=== PATIENT | male | born 1960 | race Two or more races ===

== ENCOUNTER 2016-12-15 21:33 | Emergency (ER) | payer MEDICAID, OTHER ==
[~2016-12-15] VITALS: Ht 170.2 cm; Wt 90.7 kg
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
--- NOTE | 2016-12-16 | NUR ---
PLACED IN C-COLLAR PER
--- NOTE | 2016-12-16 00:18 | NUR ---
PT TRANSPORTED TO CT IN STABLE CONDITION
[2016-12-16 00:24] LABS: BASOPHILS % (AUTO) 0.3 % (0.0-2.0); EOSINOPHILS # (AUTO) 0.4 /CMM (0.0-0.7); HEMATOCRIT 46 % (39-51); HEMOGLOBIN 15.7 g/dL (13.5-17.5); LYMPHOCYTES # (AUTO) 0.9 /CMM (0.8-4.8); LYMPHOCYTES % (AUTO) 14.8 % (20.0-44.0); MEAN CORPUSCULAR HEMOGLOBIN 31 PG (26.0-33.0); MEAN CORPUSCULAR HGB CONC 34 g/dl (31.0-36.0); MEAN CORPUSCULAR VOLUME 90 fL (80-96); MONOCYTES # (AUTO) 0.4 /CMM (0.1-1.30); MONOCYTES % (AUTO) 7.5 % (2.0-12.0); NEUTROPHILS # (AUTO) 4.2 /CMM (1.8-8.9); NEUTROPHILS % (AUTO) 71.4 % (43.0-81.0); RDW COEFFICIENT OF VARIATION 14.5 (11.5-15.0); RED BLOOD CELL COUNT(AUTO) 5.09 MIL/uL (4.5-6.0); WHITE BLOOD COUNT (AUTO) 5.9 K/uL (4.3-11.0)
[2016-12-16 00:48] LABS: INR 1.17 (0.87-1.13); PLATELET COUNT (AUTO) 43 /CMM (150-450); PROTHROMBIN TIME 12.7 SECS (9.5-12.7)
--- NOTE | 2016-12-16 00:49 | NUR ---
MEDICATED ORDERED FOR NECK PAIN 01/20
[2016-12-16] MEDS ORDERED: ONDANSETRON HCL/PF 4 MG/2 ML VIAL IV ONE (01:00)
[2016-12-16] MEDS ORDERED: MORPHINE SULFATE INJ 2 MG/ML DISP.SYRIN IV ONE (01:00)
[2016-12-16 01:25] LABS: ALBUMIN 3.3 g/dL (3.4-5.0); BILIRUBIN,DIRECT 0.6 mg/dL (0.0-0.2); BILIRUBIN,TOTAL 3.3 mg/dL (0.2-1.0); POTASSIUM 3.1 mmol/L (3.5-5.1); TOTAL PROTEIN, SERUM 6.9 g/dL (6.4-8.2)
--- NOTE | 2016-12-16 01:33 | NUR ---
REPORT GIVEN TO KAY RILEY RN FOR [facility]
[2016-12-16 02:38] LABS: BAND % (MANUAL) 8 % (0.0-5.0); EOSINOPHILS % (MANUAL) 4 % (0-4); LYMPHOCYTES % (MANUAL) 27 % (16-48); METAMYELOCYTES % 4 % (0-0); MONOCYTES % (MANUAL) 1 % (0-11.0); NEUTROPHILS % (MANUAL) 56 (42-76)
[2016-12-16] MEDS ORDERED: POTASSIUM CHLORIDE 20 MEQ TAB.PRT.SR PO ONE (03:25)
--- NOTE | 2016-12-16 03:29 | NUR ---
VERBAL ORDERS PER DR. WICK TO GIVE PT PO 1 TAB K DUR 20MEQ ON TIME NOW.
[2016-12-16 03:58] VITALS: BP 143/93
--- NOTE | 2016-12-16 03:59 | NUR ---
Patient discharged to home in stable condition. Written and verbal after care instructions given. Patient verbalizes understanding of instruction.IV removed. Catheter intact and site benign. Pressure and 4x4 applied to site. No bleeding noted. PT ambulatory with a steady gait VITAL SIGNS WITHIN NORMAL LIMITS.
== END 2016-12-16 04:00 | disposition home or self-care (01) ==
LOC: ER 21:36
DX: S09.90XA Unspecified injury of head, initial encounter (principal); S00.81XA Abrasion of other part of head, initial encounter; D69.6 Thrombocytopenia, unspecified; K76.9 Liver disease, unspecified; R17 Unspecified jaundice; R51 Headache; V43.52XA Car driver injured in collision with other type car in traffic accident, initial encounter; Y93.89 Activity, other specified; Y92.89 Other specified places as the place of occurrence of the external cause; Y99.9 Unspecified external cause status
CPT/HCPCS: 36415; 70450; 71010; 72125; 72170; 80048; 80076; 85025; 85730; 86850; 96374; 96375; 99285; A4606; Z7610; J2270; J2405